=== PATIENT | male | born 1955 | race Caucasian/White ===

== ENCOUNTER 2020-04-15 03:56 | Outpatient (CLI) | payer BC, SELFPAY ==
--- NOTE | 2020-04-15 10:15 | DI.NM_ITS ---
EXAM: NM BONE SCAN WHOLE BODY GRP CLINICAL HISTORY: PROSTATE CA, C61, STAGING EXAM. COMPARISON: No exams were available for comparison EXAMINATION: Whole body bone scan was performed with intravenous infusion of 26 millicuries of techn etium 99 labeled methylene diphosphonate. There is mildly increased uptake at the left sternoclavicu lar joint. There is increased uptake at the lumbosacral junction particularly on the right. There i s increased uptake in the region of the right hip joint. The findings as described are in a pattern consistent with degenerative disease. Correlation with radiographs of the lumbosacral spine and pelv is and of the clavicles are requested for correlation. No other significant findings. FINDINGS: Multiple areas of increased uptake, the pattern is most suggestive of degenerative change at multiple sites. Correlation with appropriate radiographs recommended as described above. IMPRESSION:
== END 2020-04-15 04:16 ==
PROVIDERS: Visit Provider Urology
DX: C61 Malignant neoplasm of prostate (principal)
CPT/HCPCS: 78306

== ENCOUNTER 2020-08-04 02:00 | Outpatient (CLI) | payer BC, SELFPAY ==
--- NOTE | 2020-08-04 | DI.US_ITS ---
EXAM: US RENAL CLINICAL HISTORY: S/P RALP,LT FLANK PAIN, EVALUATE FOR HYDRONEPHROSIS TECHNIQUE: Ultrasound of both kidneys performed using standard protocol. COMPARISON: No exams were available for comparison FINDINGS: RIGHT KIDNEY: Measures 11.6 cm in length. There is a cyst in the lower pole of the right kidney measures 5.5 x 6.3 cm. Possible tiny calculus, nonobstructive midpole level. No solid lesions. Minimal dilatation of the infundibulum evident in the right kidney. LEFT KIDNEY: Measures 11.5 cm in length. No cysts evident. Normal cortical thickness and corticomedullary differe ntiaion. No solids masses. No intrarenal calculi nor hydonephrosis. URINARY BLADDER: Some dependent debris is noted in the bladder lumen. No obvious bladder wall mass. Prevoid volume is 169 cc Postvoid volume is 21 cc Patient's status postprostatectomy June 29, 2020. No evidence of bladder mass nor diverticuli. Ureterovesical jets: Both identified and appear symmetrical IMPRESSION: 1. Large 6 centimeters cyst in the right kidney. There are no solid renal masses. 2. Possible tiny right mid pole nonobstructive calculus. Mild prominence of the upper right collect ing system. No gross hydronephrosis. 3. Intravesicular debris. No shadowing calculi within the bladder lumen. No obvious bladder wall m ass. DATA REPOSITORY: Which measures 5.5 x 6.3 cm
== END 2020-08-04 02:20 ==
PROVIDERS: PCP Neuromusculoskeletal Medicine & OMM; Visit Provider Urology
DX: N28.1 Cyst of kidney, acquired (principal)
CPT/HCPCS: 76770

== ENCOUNTER → 2022-04-05 03:41 | Outpatient (CLI) | payer BC, SELFPAY ==
--- NOTE | 2022-04-05 11:30 | DI.US_ITS ---
APPROVED REPORT EXAM: Comprehensive 2D, Doppler, and color-flow Echocardiogram Patient Location: Out-Patient Fire Eater: Jennifer Rocha RDCS (AE) Indications: Murmur, Hyperlipidemia, prostate ca, HTN Other Information Study Quality: Good Conclusion Normal left ventricular wall thickness and chamber size. Estimated ejection fraction is 60%. Wall m otion is normal Normal right ventricular size and systolic function Both atria are normal in size The aortic valve is sclerotic and trileaflet without stenosis or regurgitation Mild mitral annular calcification. Trace to mild mitral regurgitation Normal tricuspid valve with trace regurgitation Dilated ascending aorta measuring 4.06 cm Wall motion Left Ventricle The left ventricle is normal size. The left ventricular systolic function is normal. The left ventric ular ejection fraction is within the normal range. There is normal left ventricular wall thickness. T here is normal LV segmental wall motion. There is no ventricular septal defect visualized. LVEF is 60 %. Right Ventricle The right ventricle is normal size. The right ventricular systolic function is normal. Atria The left atrium size is normal. The right atrium size is normal. The interatrial septum is intact wit h no evidence for an atrial septal defect. Aortic Valve Aortic valve is sclerotic Aortic valve is trileaflet. There is no aortic valvular stenosis. No aorti c regurgitation is present. Mitral Valve Mild mitral annular calcification. No evidence of mitral valve stenosis. Trace to mild mitral regurgi tation. Tricuspid Valve The tricuspid valve is normal in structure. There is no tricuspid valve stenosis. Trace tricuspid reg urgitation. Unable to assess PA pressure. Pulmonic Valve The pulmonary valve is normal in structure. There is no pulmonic valvular stenosis. Trace pulmonic re gurgitation. Great Vessels The aortic root is normal in size. The ascending aorta is dilated. Aortic arch is normal in caliber. IVC is normal in size and collapses >50% with inspiration. Pericardium There is no pericardial effusion. 2D Dimensions IVSD d PLAX 0.99 cm M: 0.6-1.2 LV Vol A2C d MOD 123.2 mL LVPW d PLAX 0.99 cm M: 0.6 - 1.2 LV Vol A4C d MOD 136.3 mL LVID d PLAX 4.79 cm M: 4.2 - 5.8 LA vol/ BSA A2C s A-L 29.0 mL/m2 LVDs 3.10 cm M: 2.5 - 4.0 LA vol/ BSA A4C s A-L 34.4 mL/m2 Ao Root d 3.46 cm M: 3.1 - 3.7 LA Vol/ BSA Biplane s A-L 32.8 mL/m2 RA Area A4C 18.25 cm2 LA Area A4C s MOD 24.20 cm2 RA Vol/ BSA A4C s A-L 20.9 mL/m2 LA Area A2C s MOD 21.40 cm2 Ao Asc Diam d 4.06 cm M: 2.6 - 3.4 LV EF A4C MOD 60.7 % LV EF Teichholz 63.8 % LV EF A2C MOD 60.4 % LVEF (Fox's) 60.61 % M: 52 - 72 LV EF Biplane MOD 60.6 % LV Volume 97.57 mL M: 62 - 150 SV 82.48 mL LV Volume Index 42.42 mL/m2 M: 34 - 74 SV Index 35.79 mL/m2 LV Vol Biplane MOD 136.1 mL FS 34.70 % M-Mode TAPSE 3.32 cm (M/F) >1.7 LV Diastology MV E' medial 0.081 (>0.07 m/s) E/A Ratio 0.8 LV E/e MED 7.65 (<14) MV E Vmax 0.62 (0.4-1.3 m/s) MV E' lateral 0.101 (>0.1 m/s) MV A Vmax 0.80 (0.4-1.3 m/s) LV E/e LAT 6.15 (<14) MV E/A Ratio 0.77 MV E/E' medial 7.66 MV E/E' lateral 6.18 Aortic Valve LVOT Area 3.30 cm2 AoV Area Vmax 1.86 cm2 LVOT Vmax 1.06 m/s AoV Area/ BSA (Vmax) 0.81 cm2/m2 LVOT Mean Raul. 0.71 m/s CASSIDY Mean Raul. 1.68 cm2 LVOT Peak Grad 4.5 mmHg CASSIDY Mean Raul. Index 0.73 cm2/m2 LVOT Mean Grad 2.3 mmHg LVOT VTI 0.239 m LVOT Diam s 2.05 cm AoV Vmax 1.88 m/s Velocity Ratio 0.56 AoV Mean Raul. 1.39 m/s AoV Peak Grad 14.2 mmHg LVOT SV 78.97 mL AoV Mean Grad 8.4 mmHg AoV VTI 0.371 m AoV Area VTI 2.13 cm2 AoV Area/ BSA (VTI) 0.92 cm/m2 Mitral Valve MV DT 333 (160-240 msec) MV PHT 97 msec MV Area PHT 2.28 cm2 MV VTI 0.243 m MV Area VTI 3.25 (4.0-6.0 cm2) Pulmonary Valve PV Vmax 0.84 (0.5-1.5 m/s) RVOT Peak Gr. 1.51 mmHg PV Peak Grad 2.8 mmHg RVOT Mean Gr. 0.80 mmHg PV Mean Grad 1.9 mmHg RVOT VTI 0.136 m PV VTI 0.179 m RVOT Vmax 0.62 m/s
== END ==
PROVIDERS: PCP Neuromusculoskeletal Medicine & OMM; Visit Provider Neuromusculoskeletal Medicine & OMM
DX: R01.1 Cardiac murmur, unspecified (principal); E78.5 Hyperlipidemia, unspecified; I10 Essential (primary) hypertension; C61 Malignant neoplasm of prostate
CPT/HCPCS: 93306